=== PATIENT | male | born 1995 | race Asian ===

== ENCOUNTER 2018-04-11 11:00 | Outpatient (CLI) | payer OTHER | END 2018-04-11 11:05 | disposition short-term general hospital (02) | LOC: AMB 11:00 | DX: E11.9 Type 2 diabetes mellitus without complications (principal) | CPT/HCPCS: A0425; A0427 ==

== ENCOUNTER 2018-04-11 11:07 | Emergency (ER) | payer OTHER ==
[~2018-04-11] VITALS: Ht 185.4 cm; Wt 73.9 kg
[2018-04-11 12:05] LABS: PLATELET COUNT 332 K/uL (142-355)
[2018-04-11 19:00] VITALS: BP 125/89; TEMP 97.9
== END 2018-04-11 19:00 | disposition home or self-care (01) ==
LOC: ED 11:07
PROVIDERS: Family Medicine
DX: R73.9 Hyperglycemia, unspecified (principal)
CPT/HCPCS: 36415; 80053; 80307; 80320; 81000; 82962; 85027; 96365; 96372; 96374; 99284; J1815

== ENCOUNTER 2018-04-12 16:35 | Emergency (ER) | payer OTHER | END 2018-04-12 16:54 | disposition home or self-care (01) | LOC: ED 16:35 | DX: E11.9 Type 2 diabetes mellitus without complications (principal) | CPT/HCPCS: 99281 ==

== ENCOUNTER 2018-04-25 14:46 | Outpatient (CLI) | payer OTHER | END 2018-04-25 14:50 | disposition short-term general hospital (02) | LOC: AMB 14:46 | DX: R55 Syncope and collapse (principal) | CPT/HCPCS: A0425; A0427 ==

== ENCOUNTER 2018-04-25 14:50 | Emergency (ER) | payer OTHER ==
[~2018-04-25] VITALS: Ht 185.4 cm; Wt 74.8 kg
[2018-04-25 15:23] LABS: PLATELET COUNT 337 K/uL (142-355)
[2018-04-25 15:36] LABS: POTASSIUM 5.2 mmol/L (3.6-5.2)
[2018-04-25 22:38] VITALS: BP 119/67; TEMP 98.3
== END 2018-04-25 22:40 | disposition short-term general hospital (02) ==
LOC: ED 14:56
PROVIDERS: Family Medicine
DX: E11.10 Type 2 diabetes mellitus with ketoacidosis without coma (principal)
CPT/HCPCS: 36415; 36600; 80053; 80307; 80320; 81000; 81002; 82805; 82947; 82962; 85027; 96361; 96365; 96375; 99285; J1815

== ENCOUNTER 2018-04-25 22:47 | Outpatient (CLI) | payer OTHER | END 2018-04-25 23:16 | disposition short-term general hospital (02) | LOC: AMB 22:47 | DX: E11.10 Type 2 diabetes mellitus with ketoacidosis without coma (principal) | CPT/HCPCS: A0425; A0427 ==

== ENCOUNTER 2018-12-07 19:14 | Outpatient (CLI) | payer OTHER ==
[2018-12-08] MEDS ORDERED: METFORMIN HCL500 M1 PO ×2 (00:53)
[2018-12-08] MEDS ORDERED: INSUINJ20 SC ×2 (00:54)
[2018-12-08] MEDS ORDERED: INSUINJP SC ×2 (00:55)
== END 2018-12-07 19:18 | disposition short-term general hospital (02) ==
LOC: AMB 19:14
DX: R53.1 Weakness (principal)
CPT/HCPCS: A0425; A0429

== ENCOUNTER 2018-12-07 19:19 | Inpatient (IN) | payer OTHER ==
[2018-12-07] VITALS (8 sets, daily range): BP systolic 85–119; BP diastolic 40–74; TEMP 97–98.2; Ht 188 cm; Wt 69.0 kg
[~2018-12-07] VITALS: Ht 188 cm; Wt 69.0 kg
[2018-12-07 20:05] LABS: PLATELET COUNT 289 K/uL (142-355)
[2018-12-07 20:12] LABS: POTASSIUM 4.6 mmol/L (3.6-5.2)
[2018-12-08] VITALS (13 sets, daily range): BP systolic 94–107; BP diastolic 44–74; TEMP 98.1–98.9
[2018-12-08] MEDS ORDERED: METFORMIN HCL500 M1 PO (00:53)
[2018-12-08] MEDS ORDERED: INSUINJ20 SC (00:54)
[2018-12-08] MEDS ORDERED: INSUINJP SC (00:55)
[2018-12-08 05:46] LABS: PLATELET COUNT 286 K/uL (142-355)
[2018-12-08 06:06] LABS: POTASSIUM 3.1 mmol/L (3.6-5.2)
[2018-12-08 16:47] LABS: POTASSIUM 3.8 mmol/L (3.6-5.2)
== END 2018-12-08 09:00 | disposition home or self-care (01) | DRG 639 ==
LOC: ED 19:26 → ICU 20:51
PROVIDERS: Emergency Medicine; ADMIT Internal Medicine
DX: E11.10 Type 2 diabetes mellitus with ketoacidosis without coma (principal); Z91.14 Patient's other noncompliance with medication regimen
CPT/HCPCS: 36415; 36600; 80053; 80307; 81000; 82805; 82947; 82962; 83036; 83735; 85027; 93005; 94760; 96360; 96365; 96375; 96376; 99285; J1815; J3490

== ENCOUNTER 2018-12-11 10:05 | Inpatient (IN) | payer OTHER ==
[2018-12-11] VITALS (13 sets, daily range): BP systolic 100–121; BP diastolic 44–77; TEMP 97.5–99.1; Ht 188 cm; Wt 69.0 kg
[~2018-12-11] VITALS: Ht 188 cm; Wt 69.0 kg
[~2018-12-11 10:05] MED LIST: INSUINJ20 SC; INSUINJP SC; METFORMIN HCL500 M1 PO
[2018-12-11 10:37] LABS: PLATELET COUNT 194 K/uL (142-355)
[2018-12-11 10:49] LABS: POTASSIUM 4.6 mmol/L (3.6-5.2); SODIUM 125 mmol/L (136-145)
[2018-12-11 15:07] LABS: POTASSIUM 4.1 mmol/L (3.6-5.2)
[2018-12-11 18:03] LABS: POTASSIUM 3.5 mmol/L (3.6-5.2)
[2018-12-11 23:17] LABS: POTASSIUM 3.5 mmol/L (3.6-5.2)
[2018-12-12] VITALS (11 sets, daily range): BP systolic 92–109; BP diastolic 50–78; TEMP 97.7–98
[2018-12-12 02:31] LABS: POTASSIUM 2.8 mmol/L (3.6-5.2)
[2018-12-12 05:35] LABS: PLATELET COUNT 182 K/uL (142-355)
[2018-12-12 06:03] LABS: POTASSIUM 2.5 mmol/L (3.6-5.2)
== END 2018-12-12 15:37 | disposition home or self-care (01) | DRG 639 ==
LOC: ED 10:05 → ICU 11:15
PROVIDERS: Student in an Organized Health Care Education/Training Program; ADMIT Internal Medicine
DX: E11.65 Type 2 diabetes mellitus with hyperglycemia (principal); Z91.14 Patient's other noncompliance with medication regimen; Z91.19 Patient's noncompliance with other medical treatment and regimen; R53.1 Weakness
CPT/HCPCS: 36415; 36600; 80048; 80053; 81000; 82805; 82947; 83036; 83735; 84484; 85027; 93005; 96361; 96365; 96375; 99285; J1815; J2765; J3475; J3490

== ENCOUNTER 2018-12-18 19:23 | Emergency (ER) | payer OTHER ==
[~2018-12-18] VITALS: Ht 188 cm; Wt 68.9 kg
[2018-12-18 19:25] VITALS: TEMP 98.1
[2018-12-18 19:45] LABS: PLATELET COUNT 366 K/uL (142-355)
[2018-12-18 21:00] VITALS: BP 126/72
== END 2018-12-18 22:00 | disposition short-term general hospital (02) ==
LOC: ED 19:23
PROVIDERS: Emergency Medicine
DX: E11.10 Type 2 diabetes mellitus with ketoacidosis without coma (principal); Z79.4 Long term (current) use of insulin
CPT/HCPCS: 36415; 80053; 80307; 81000; 82140; 82805; 82962; 83605; 83690; 85027; 96360; 96361; 96365; 96375; 99285; J1815

== ENCOUNTER 2018-12-28 16:47 | Outpatient (CLI) | payer OTHER | END 2018-12-28 16:52 | disposition short-term general hospital (02) | LOC: AMB 16:47 | DX: E10.65 Type 1 diabetes mellitus with hyperglycemia (principal); R53.1 Weakness | CPT/HCPCS: A0425; A0427 ==

== ENCOUNTER 2018-12-28 16:55 | Inpatient (IN) | payer OTHER ==
[~2018-12-28] VITALS: Ht 182.9 cm; Wt 70.3 kg
[2018-12-28] VITALS (7 sets, daily range): BP systolic 100–123; BP diastolic 40–69; TEMP 97.9–98; Ht 182.9 cm; Wt 70.3 kg
[2018-12-28 17:25] LABS: PLATELET COUNT 287 K/uL (142-355)
[2018-12-28 17:37] LABS: POTASSIUM 4.9 mmol/L (3.6-5.2); SODIUM 122 mmol/L (136-145)
[2018-12-29] VITALS: BP 90/33; TEMP 98
[2018-12-29 06:57] LABS: PLATELET COUNT 244 K/uL (142-355)
[2018-12-29 07:51] VITALS: BP 102/55; TEMP 98.7
[2018-12-29 12:59] VITALS: BP 101/52; TEMP 97.9
== END 2018-12-29 15:00 | disposition home or self-care (01) | DRG 639 ==
LOC: ED 17:02 → ICU 17:56 → MED/SURG 12-29 09:37
PROVIDERS: Family Medicine; ADMIT Student in an Organized Health Care Education/Training Program
DX: E10.10 Type 1 diabetes mellitus with ketoacidosis without coma (principal); E83.42 Hypomagnesemia; R53.83 Other fatigue; Z91.14 Patient's other noncompliance with medication regimen; Z91.19 Patient's noncompliance with other medical treatment and regimen; E86.0 Dehydration; R06.02 Shortness of breath; R10.84 Generalized abdominal pain
CPT/HCPCS: 36415; 36600; 80048; 80053; 80307; 81000; 81002; 82805; 82947; 82962; 83036; 83735; 84484; 85027; 93005; 96360; 96361; 96365; 96375; 99285; J1815

== ENCOUNTER 2019-01-02 15:06 | Outpatient (CLI) | payer OTHER | END 2019-01-02 15:32 | disposition short-term general hospital (02) | LOC: AMB 15:06 | DX: E10.65 Type 1 diabetes mellitus with hyperglycemia (principal); R53.1 Weakness; R11.0 Nausea | CPT/HCPCS: A0425; A0427 ==

== ENCOUNTER 2019-01-10 11:01 | Outpatient (CLI) | payer OTHER | END 2019-01-10 11:09 | disposition short-term general hospital (02) | LOC: AMB 11:01 | DX: E10.65 Type 1 diabetes mellitus with hyperglycemia (principal) | CPT/HCPCS: A0425; A0427 ==

== ENCOUNTER 2019-01-10 11:12 | Emergency (ER) | payer OTHER ==
[~2019-01-10] VITALS: Ht 182.9 cm; Wt 70.3 kg
[2019-01-10 11:12] VITALS: TEMP 97.6
[2019-01-10 11:32] LABS: PLATELET COUNT 330 K/uL (142-355)
[2019-01-10 11:41] LABS: POTASSIUM 4.9 mmol/L (3.6-5.2)
[2019-01-10 16:37] VITALS: BP 101/59
== END 2019-01-10 16:37 | disposition short-term general hospital (02) ==
LOC: ED 11:12
PROVIDERS: Emergency Medicine
DX: E11.10 Type 2 diabetes mellitus with ketoacidosis without coma (principal)
CPT/HCPCS: 36600; 80053; 80307; 81000; 81002; 82805; 82947; 85027; 96360; 96361; 96365; 96366; 99284; J1815

== ENCOUNTER 2019-02-19 19:27 | Outpatient (CLI) | payer OTHER | END 2019-02-19 19:34 | disposition short-term general hospital (02) | LOC: AMB 19:27 | DX: R06.00 Dyspnea, unspecified (principal); R53.1 Weakness; R73.9 Hyperglycemia, unspecified | CPT/HCPCS: A0425; A0429 ==

== ENCOUNTER 2019-02-19 19:40 | Emergency (ER) | payer OTHER ==
[~2019-02-19] VITALS: Ht 182.9 cm; Wt 70.3 kg
[2019-02-19 19:40] VITALS: TEMP 98.1
[2019-02-19 20:20] LABS: PLATELET COUNT 335 K/uL (142-355)
[2019-02-19 21:04] LABS: POTASSIUM 4.6 mmol/L (3.6-5.2); SODIUM 126 mmol/L (136-145)
[2019-02-20 02:44] LABS: POTASSIUM 4.4 mmol/L (3.6-5.2)
[2019-02-20 02:50] VITALS: BP 121/76
== END 2019-02-20 03:05 | disposition short-term general hospital (02) ==
LOC: ED 19:40
PROVIDERS: Emergency Medicine
DX: E11.10 Type 2 diabetes mellitus with ketoacidosis without coma (principal); Z79.4 Long term (current) use of insulin; E87.1 Hypo-osmolality and hyponatremia; E86.0 Dehydration
CPT/HCPCS: 36415; 80048; 80053; 80307; 81000; 82805; 82962; 83735; 84484; 85027; 96360; 96361; 96365; 96375; 99284; J1815; J3490

== ENCOUNTER 2019-02-20 02:58 | Outpatient (CLI) | payer OTHER | END 2019-02-20 04:13 | disposition short-term general hospital (02) | LOC: AMB 02:58 | DX: E87.1 Hypo-osmolality and hyponatremia (principal); E10.10 Type 1 diabetes mellitus with ketoacidosis without coma; Z79.4 Long term (current) use of insulin | CPT/HCPCS: A0425; A0429 ==